=== PATIENT | female | born 1955 | race Caucasian/White ===

== ENCOUNTER → 2022-01-22 | Outpatient (CLI) | payer MEDICARE ==
[~2022-01-22] MED LIST: CLAR1TAB13 PO; FERR325T3 PO; MECL1TAB31 PO
[2022-01-22 17:28] LABS: BLOOD UREA NITROGEN 17 MG/DL (7-18); CREATININE FOR GFR 0.82 MG/DL (0.55-1.30); GLOMERULAR FILTRATION RATE > 60.0 (>45)
== END ==
LOC: M LAB 16:22
PROVIDERS: ATTEND Orthopaedic Surgery
DX: M25.562 Pain in left knee (principal); M25.561 Pain in right knee

== ENCOUNTER → 2022-01-24 | Outpatient (CLI) | payer MEDICARE ==
[~2022-01-24] MED LIST changes: +PROHANCE 279.3MG/ML 15ML VIAL As Ordered ONE; +PROHANCE 279.3MG/ML 5ML VIAL As Ordered ONE
== END ==
LOC: M RAD 11:00
PROVIDERS: ATTEND Orthopaedic Surgery
DX: S83.281A Other tear of lateral meniscus, current injury, right knee, initial encounter (principal); S83.241A Other tear of medial meniscus, current injury, right knee, initial encounter; S83.411A Sprain of medial collateral ligament of right knee, initial encounter; M25.461 Effusion, right knee; X58.XXXA Exposure to other specified factors, initial encounter; Y92.9 Unspecified place or not applicable; Y93.9 Activity, unspecified; Y99.9 Unspecified external cause status
CPT/HCPCS: 73723; A9576

== ENCOUNTER 2025-04-19 15:15 | Emergency (ER) | payer MEDICAID, MEDICARE, OTHER ==
[~2025-04-19] VITALS: Ht 165.1 cm; Wt 126.9 kg
[~2025-04-19 15:15] MED LIST changes: +MECL-209 PO; -MECL1TAB31 PO; -PROHANCE 279.3MG/ML 15ML VIAL As Ordered ONE; -PROHANCE 279.3MG/ML 5ML VIAL As Ordered ONE
[2025-04-19 15:52] LABS: BASO # 0.1 10^3/uL (0.0-0.2); BASO % 0.6 % (0.0-1.0); EOS # 0.1 10^3/uL (0.0-0.5); EOS % 1.1 % (0.0-3.0); LYMPH # 2.7 10^3/uL (1.5-5.0); LYMPH % 21.5 % (24.0-44.0); MONO # 0.7 10^3/uL (0.0-0.8); MONO % 5.3 % (2.0-8.0); NEUTROPHILS # 8.8 10^3/uL (1.5-8.5); NEUTROPHILS % 70.8 % (36.0-66.0); PLATELET COUNT, AUTOMATED 373 10^3/uL (150-450)
[2025-04-19 16:00] LABS: KETONE, URINE AUTO RFX TRACE mg/dL (NEGATIVE); MUCUS, URINE RFX SMALL (NEGATIVE); NITRITE, URINE AUTO RFX NEGATIVE (NEGATIVE); RBC, URINE AUTO RFX TNTC /HPF (0-3); SQUAM EPITHELIAL CELL UR AURFX 2 /HPF (0-6)
[2025-04-19 16:07] LABS: LEUKOCYTE ESTERASE UR AUTO RFX 1+ (NEGATIVE); WBC, URINE AUTO RFX 11 /HPF (0-3)
[2025-04-19 17:45] LABS: CALCIUM LEVEL 9.2 MG/DL (8.3-10.6); CARBON DIOXIDE LEVEL 28.0 MMOL/L (20-31); CHLORIDE LEVEL 103.0 MMOL/L (98-107); CREATININE FOR GFR 0.74 MG/DL (0.55-1.30); GLOMERULAR FILTRATION RATE 87.0 (>39); POTASSIUM SERUM 4.3 MMOL/L (3.5-5.1); SODIUM LEVEL 142.0 MMOL/L (136-145)
[2025-04-19] MEDS ORDERED: ISOVUE-370 76% 100 ML VIAL As Ordered ONE (18:58)
[2025-04-19 23:50] VITALS: BP 131/64; TEMP 97.8; O2SAT 98
== END 2025-04-19 23:58 | disposition home or self-care (01) ==
LOC: M ED 15:15
DX: N95.0 Postmenopausal bleeding (principal); N85.00 Endometrial hyperplasia, unspecified; D35.01 Benign neoplasm of right adrenal gland; D35.02 Benign neoplasm of left adrenal gland; I10 Essential (primary) hypertension; Z79.899 Other long term (current) drug therapy
CPT/HCPCS: 74177; 76830; 76856; 80048; 81001; 85025; 86850; 86900; 86901; 87086; 93976; 99283; Q9967

== ENCOUNTER 2025-08-15 05:10 | Inpatient (IN) | payer OTHER ==
[~2025-08-15] VITALS: Ht 165.1 cm; Wt 127.8 kg
[2025-08-15] MEDS: IPRATROPIUM 0.5 MG/ALBUTEROL 2.5 MG INH SOL UD 3 ML NEB ONE (06:59)
[2025-08-15] MEDS ORDERED: IPRATROPIUM 0.5 MG/ALBUTEROL 2.5 MG INH SOL UD 3 ML NEB PRN (07:10)
[2025-08-15 07:25] LABS: VENOUS BASE EXCESS 3.2 (-2.0-2.0); VENOUS HCO3 29.0 MMOL/L (23.0-27.0); VENOUS PARTIAL PRESSURE CO2 48.5 mmHg (38.0-50.0); VENOUS PARTIAL PRESSURE O2 77.3 mmHg (30.0-50.0); VENOUS PH 7.394 UNITS (7.330-7.430); VENOUS STANDARD HCO3 27.2 MMOL/L; VENOUS TOTAL CO2 30.5 MMOL/L (24.0-28.0)
[2025-08-15] MEDS: BENZONATATE 100 MG CAPSULE PO ONE (07:30)
[2025-08-15 07:33] LABS: BASO # 0.1 10^3/uL (0.0-0.2); BASO % 0.5 % (0.0-1.0); EOS # 0.1 10^3/uL (0.0-0.5); EOS % 0.3 % (0.0-3.0); LYMPH # 2.1 10^3/uL (1.5-5.0); LYMPH % 12.3 % (24.0-44.0); MONO # 1.0 10^3/uL (0.0-0.8); MONO % 5.7 % (2.0-8.0); NEUTROPHILS # 13.9 10^3/uL (1.5-8.5); NEUTROPHILS % 79.8 % (36.0-66.0); PLATELET COUNT, AUTOMATED 381 10^3/uL (150-450)
[2025-08-15 07:56] LABS: ALT/SGPT 14.0 U/L (7.0-40); AST/SGOT 17.0 U/L (<34); CPK CREATINE PHOSPHOKINASE 81.0 U/L (34-145)
[2025-08-15 07:57] LABS: CK-MB VALUE MASS 1.1 NG/ML (<3.6); MB/CK RELATIVE INDEX 1.35 (< OR =4)
[2025-08-15] MEDS ORDERED: ISOVUE-370 76% 100 ML VIAL As Ordered ONE (08:13)
[2025-08-15 08:51] LABS: C REACTIVE PROTEIN QUANTITATIV 11.46 MG/DL (<1.0)
[2025-08-15] MEDS: cefTRIAXone SOD 1 GM in DEXTROSE 5% (D5W) ADV/MINI-BAG 50 ML IV ONE (10:34)
[2025-08-15] MEDS: DOXYCYCLINE HYCLATE 100 MG TABLET PO ONE (11:25)
[2025-08-15] MEDS: amLODIPine 5 MG TAB PO ONE (11:25)
[2025-08-15] MEDS ORDERED: HOME MED LIST COMPLETE! XX SCH (12:30)
[2025-08-15 13:28] VITALS: BP 181/80; TEMP 97.5; O2SAT 93
[2025-08-15 14:22] LABS: CALCIUM LEVEL 8.7 MG/DL (8.3-10.6); CARBON DIOXIDE LEVEL 26.0 MMOL/L (20-31); CHLORIDE LEVEL 103.0 MMOL/L (98-107); CREATININE FOR GFR 0.76 MG/DL (0.55-1.30); GLOMERULAR FILTRATION RATE 84.2 (>39); POTASSIUM SERUM 4.1 MMOL/L (3.5-5.1); SODIUM LEVEL 140.0 MMOL/L (136-145)
[2025-08-15] MEDS: ENOXAPARIN 40 MG/0.4 ML SYRINGE (J1650 PER 10MG) SC SCH (14:32)
[2025-08-15 14:33] VITALS: BP 148/70
[2025-08-15] MEDS: BENZONATATE 100 MG CAPSULE PO SCH (18:09)
[2025-08-15] MEDS: guaiFENesin SYRUP 200 MG/10 ML UDC PO PRN (18:09)
[2025-08-15 20:48] VITALS: BP 135/61; TEMP 97.2; O2SAT 94
[2025-08-15] MEDS: DOXYCYCLINE HYCLATE 100 MG TABLET PO SCH (21:33)
[2025-08-16 04:50] VITALS: TEMP 97.2
[2025-08-16 04:57] VITALS: BP 153/72; O2SAT 95
[2025-08-16 06:41] LABS: BASO # 0.0 10^3/uL (0.0-0.2); BASO % 0.2 % (0.0-1.0); EOS # 0.0 10^3/uL (0.0-0.5); EOS % 0.0 % (0.0-3.0); LYMPH # 1.7 10^3/uL (1.5-5.0); LYMPH % 7.6 % (24.0-44.0); MONO # 1.1 10^3/uL (0.0-0.8); MONO % 4.8 % (2.0-8.0); NEUTROPHILS # 19.0 10^3/uL (1.5-8.5); NEUTROPHILS % 86.1 % (36.0-66.0); PLATELET COUNT, AUTOMATED 426 10^3/uL (150-450)
[2025-08-16 07:56] LABS: CALCIUM LEVEL 9.2 MG/DL (8.3-10.6); CARBON DIOXIDE LEVEL 33.0 MMOL/L (20-31); CHLORIDE LEVEL 101.0 MMOL/L (98-107); CREATININE FOR GFR 0.83 MG/DL (0.55-1.30); GLOMERULAR FILTRATION RATE 75.8 (>39); POTASSIUM SERUM 4.4 MMOL/L (3.5-5.1); SODIUM LEVEL 141.0 MMOL/L (136-145)
[2025-08-16] MEDS: amLODIPine 5 MG TAB PO SCH (08:09)
[2025-08-16] MEDS: cefTRIAXone SOD 1 GM in DEXTROSE 5% (D5W) ADV/MINI-BAG 50 ML IV SCH (08:09)
[2025-08-16 12:00] VITALS: BP 178/80; TEMP 97.4; O2SAT 94
[2025-08-16] MEDS: PANTOPRAZOLE 40MG VIAL IV ONE (14:33)
[2025-08-16] MEDS: guaiFENesin/CODEINE SYRUP 5 ML UDC PO ONE (14:33)
[2025-08-16 20:04] VITALS: BP 143/66; TEMP 97.1; O2SAT 93
[2025-08-16] MEDS: DEXTROMETHORPHAN 60 MG/10 ML SUSP 90 ML BTL PO SCH (21:29)
[2025-08-16] MEDS: guaiFENesin/CODEINE SYRUP 5 ML UDC PO PRN (23:32)
[2025-08-17] VITALS (7 sets, daily range): BP systolic 129–147; BP diastolic 59–69; TEMP 97–98.4; O2SAT 91–98
[2025-08-17] MEDS: ALBUTEROL SULFATE 2.5 MG/0.5 ML INH CONCENTRATE NEB SOLN NEB PRN (02:14)
[2025-08-17 06:44] LABS: BASO # 0.1 10^3/uL (0.0-0.2); BASO % 0.4 % (0.0-1.0); EOS # 0.2 10^3/uL (0.0-0.5); EOS % 1.2 % (0.0-3.0); LYMPH # 3.0 10^3/uL (1.5-5.0); LYMPH % 15.6 % (24.0-44.0); MONO # 1.1 10^3/uL (0.0-0.8); MONO % 5.6 % (2.0-8.0); NEUTROPHILS # 14.6 10^3/uL (1.5-8.5); NEUTROPHILS % 75.8 % (36.0-66.0); PLATELET COUNT, AUTOMATED 434 10^3/uL (150-450)
[2025-08-17] MEDS: ALBUTEROL SULFATE 2.5 MG/0.5 ML INH CONCENTRATE NEB SOLN NEB SCH (10:13)
[2025-08-17] MEDS: ONDANSETRON 4MG/2ML VIAL IV PRN (22:19)
[2025-08-18 04:31] VITALS: BP 129/57; TEMP 97.2; TEMP 98.1; O2SAT 95
[2025-08-18 06:30] VITALS: O2SAT 86
[2025-08-18 06:31] VITALS: O2SAT 92
[2025-08-18 07:14] LABS: BASO # 0.1 10^3/uL (0.0-0.2); BASO % 0.5 % (0.0-1.0); EOS # 0.3 10^3/uL (0.0-0.5); EOS % 2.4 % (0.0-3.0); LYMPH # 2.5 10^3/uL (1.5-5.0); LYMPH % 20.3 % (24.0-44.0); MONO # 0.7 10^3/uL (0.0-0.8); MONO % 5.8 % (2.0-8.0); NEUTROPHILS # 8.7 10^3/uL (1.5-8.5); NEUTROPHILS % 69.9 % (36.0-66.0); PLATELET COUNT, AUTOMATED 367 10^3/uL (150-450)
[2025-08-18] MEDS ORDERED: MIRALAX *UNIT DOSE* 17 GM PACKET PO PRN (08:00)
[2025-08-18] MEDS: PANTOPRAZOLE 40MG TAB PO SCH (08:43)
[2025-08-18] MEDS ORDERED: SENNA 8.6 MG TAB PO ONE (09:00)
[2025-08-18] MEDS: dexAMETHasone 4 MG/ML 1 ML VIAL IV ONE (09:20)
[2025-08-18] MEDS: BISACODYL 5 MG TAB PO ONE (09:20)
[2025-08-18] MEDS: guaiFENesin/CODEINE SYRUP 5 ML UDC PO ONE (09:20)
[2025-08-18 12:22] VITALS: BP 166/73; TEMP 97.3; O2SAT 92
[2025-08-18 20:01] VITALS: BP 126/58; TEMP 98.6; O2SAT 92
[2025-08-19] VITALS (7 sets, daily range): BP systolic 138–169; BP diastolic 63–75; TEMP 97–98.6; O2SAT 86–98
[2025-08-19 07:20] LABS: BASO # 0.0 10^3/uL (0.0-0.2); BASO % 0.1 % (0.0-1.0); EOS # 0.0 10^3/uL (0.0-0.5); EOS % 0.0 % (0.0-3.0); LYMPH # 1.5 10^3/uL (1.5-5.0); LYMPH % 9.8 % (24.0-44.0); MONO # 0.7 10^3/uL (0.0-0.8); MONO % 4.6 % (2.0-8.0); NEUTROPHILS # 13.1 10^3/uL (1.5-8.5); NEUTROPHILS % 84.6 % (36.0-66.0); PLATELET COUNT, AUTOMATED 377 10^3/uL (150-450)
[2025-08-19 07:44] LABS: C REACTIVE PROTEIN QUANTITATIV 3.02 MG/DL (<1.0)
[2025-08-19 07:45] LABS: CALCIUM LEVEL 9.4 MG/DL (8.3-10.6); CARBON DIOXIDE LEVEL 33.0 MMOL/L (20-31); CHLORIDE LEVEL 101.0 MMOL/L (98-107); CREATININE FOR GFR 0.81 MG/DL (0.55-1.30); GLOMERULAR FILTRATION RATE 78.0 (>39); POTASSIUM SERUM 4.0 MMOL/L (3.5-5.1); SODIUM LEVEL 142.0 MMOL/L (136-145)
[2025-08-20 03:46] VITALS: BP 136/60; TEMP 97.8; O2SAT 91
[2025-08-20] MEDS: CEFPODOXIME PROXETIL 200 MG TABLET PO SCH (08:52)
[2025-08-20] MEDS: PANTOPRAZOLE 40MG VIAL IV ONE (08:52)
== END 2025-08-20 09:21 | disposition left against medical advice (07) | DRG 195 ==
LOC: M ED 05:10 → M ED INP 10:36 → M MSPAV 13:16
PROVIDERS: ADMIT Student in an Organized Health Care Education/Training Program; ATTEND Student in an Organized Health Care Education/Training Program
DX: J18.9 Pneumonia, unspecified organism (principal); I10 Essential (primary) hypertension; R09.02 Hypoxemia